=== PATIENT | female | born 1940 | race Caucasian/White ===

== ENCOUNTER 2017-05-01 09:01 | Inpatient (IN) | payer MEDICARE ==
[2017-05-01] VITALS (24 sets, daily range): BP systolic 99–145; BP diastolic 46–66
[~2017-05-01] VITALS: Ht 157.5 cm; Wt 79.8 kg
[~2017-05-01 09:01] MED LIST: ALBU90AE IH; ANAS1TAB7 PO; ATOR10TA69 PO; BIOT10004 PO; CALC625T77 PO; CARV3.12 PO; CHOL200013 PO; DOCU50CA13 PO; FLAX100030 PO; FLUO-125 PO; FOLI1TAB85 PO; FURO40TA5 PO; KRIL1CAP12 PO; LISI-617 PO; LORA10CA9 PO; METF500T6 PO; MONT10TA24 PO; TRIA1CAP6 PO; TURM500C4 PO; cinnamon PO
[2017-05-01 09:38] LABS: APPEARANCE,URINE Clear (CLEAR); BILIRUBIN,URINE Negative (NEGATIVE); COLOR,URINE Dark Yellow (YELLOW); GLUCOSE, URINE (UA) Negative (NEGATIVE); KETONES,URINE Negative (NEGATIVE); LEUKOCYTE ESTERASE ,URINE Small (NEGATIVE); NITRATE,URINE Negative (NEGATIVE); OCCULT BLOOD,URINE Negative (NEGATIVE); PROTEIN,URINE Negative (NEGATIVE)
[2017-05-01] MEDS ORDERED: ONDANSETRON HCL 4 MG/2 ML VIAL ONE ×2 (09:46→12:22)
[2017-05-01] MEDS ORDERED: SODIUM CHLORIDE 0.9% 1000ML 1,000 ML IV ONE (09:46)
[2017-05-01] MEDS ORDERED: ACETAMINOPHEN 325 MG TAB ONE (09:47)
[2017-05-01] MEDS ORDERED: MORPHINE SULFATE 2 MG/ML 1ML SYG ONE (09:47)
[2017-05-01 09:51] LABS: BACTERIA,URINE Rare /HPF (None Seen); MUCUS,URINE Rare LPF (None Seen); RBC,URINE 0-1 /HPF (0-1); SQUAMOUS EPITHELIAL CELL,UR Rare /LPF (0-2)
[2017-05-01 09:55] LABS: BASOPHILS % (AUTO) 0.2 % (0.0-5.0); EOSINOPHILS % (AUTO) 0.2 % (0.0-8.0); HEMATOCRIT 31.7 % (36-48); LYMPHOCYTES % (AUTO) 9.1 % (21.0-51.0); MEAN CORPUSCULAR HGB CONC 33.3 g/dL (32.0-36.0); MEAN CORPUSCULAR VOLUME 89.9 fL (79-99); MONOCYTES % (AUTO) 7.2 % (3.0-13.0); NEUTROPHILS % (AUTO) 83.3 % (40.0-77.0); PLATELET COUNT (AUTO) 257 K/uL (130-400); RED BLOOD CELL COUNT(AUTO) 3.53 MIL/uL (4.00-5.50); RED CELL DISTRIBUTION WIDTH 12.9 % (11.0-15.5); WHITE BLOOD COUNT (AUTO) 12.3 K/uL (4.8-10.8)
[2017-05-01 10:31] LABS: CREATININE 1.5 mg/dL (0.5-1.5)
[2017-05-01] MEDS ORDERED: ZOSYN 3.375GM+NS 50ML 50 ML IV ONE (10:33)
[2017-05-01 10:37] LABS: ALBUMIN 3.2 g/dL (3.5-5.0); BILIRUBIN,TOTAL 0.5 mg/dL (0.2-1.0); TOTAL PROTEIN, SERUM 6.7 g/dL (6.0-8.3)
[2017-05-01] MEDS: SODIUM CHLORIDE 0.9% 1000ML 1,000 ML IV SCH ×2 (11:02→20:58)
[2017-05-01] MEDS ORDERED: ONDANSETRON HCL 4 MG/2 ML VIAL IV PRN ×2 (11:15→19:41)
[2017-05-01] MEDS ORDERED: ACETAMINOPHEN 325 MG TAB PO PRN ×2 (11:15)
[2017-05-01] MEDS ORDERED: MORPHINE SULFATE 2 MG/ML 1ML SYG IV PRN (11:15)
[2017-05-01] MEDS ORDERED: ROCURONIUM BROMIDE 10MG/1ML 5ML VL ONE ×2 (12:22→12:25)
[2017-05-01] MEDS ORDERED: LIDOCAINE PF 2% 5ML ABBOJECT ONE (12:22)
[2017-05-01] MEDS ORDERED: LIDOCAINE HCL 4% LTA SOL 4 ML VIAL ONE (12:22)
[2017-05-01] MEDS ORDERED: LIDOCAINE HCL 2% JELLY 5 ML ONE (12:22)
[2017-05-01] MEDS ORDERED: LIDOCAINE HCL MPF 1% 5ML VIAL ONE (12:22)
[2017-05-01] MEDS ORDERED: MIDAZOLAM HCL 1 MG/ML 2ML VIAL ONE (12:23)
[2017-05-01] MEDS ORDERED: FENTANYL CITRATE PF 50 MCG/1 ML 2ML VIAL ONE ×3 (12:23→14:15)
[2017-05-01] MEDS: METRONIDAZOLE 500MG/100ML BAG 100 ML IV SCH ×2 (14:45→22:26)
[2017-05-01] MEDS: LEVOFLOXACIN 500 MG/D5W 100 ML 100 ML IV SCH (20:58)
[2017-05-01] MEDS: MORPHINE SULFATE 4 MG/1ML SYG IVP PRN (22:26)
[2017-05-01] MEDS: [UNRECOGNIZED DRUG - OTHER] IV SCH (23:44)
[2017-05-01] MEDS: ZOSYN 3.375 GM IV SCH (23:44)
[2017-05-02] MEDS: METRONIDAZOLE 500MG/100ML BAG 100 ML IV SCH ×3 (02:48→19:37)
[2017-05-02] MEDS: MORPHINE SULFATE 4 MG/1ML SYG IVP PRN ×4 (02:54→16:39)
[2017-05-02 04:05] VITALS: BP 136/69
[2017-05-02 05:26] LABS: HEMATOCRIT 30.4 % (36-48); MEAN CORPUSCULAR HEMOGLOBIN 31.2 pg (27.0-33.0); MEAN CORPUSCULAR HGB CONC 34.2 g/dL (32.0-36.0); MEAN CORPUSCULAR VOLUME 91.2 fL (79-99); PLATELET COUNT (AUTO) 225 K/uL (130-400); RED BLOOD CELL COUNT(AUTO) 3.33 MIL/uL (4.00-5.50); WHITE BLOOD COUNT (AUTO) 9.9 K/uL (4.8-10.8)
[2017-05-02] MEDS: [UNRECOGNIZED DRUG - OTHER] IV SCH ×3 (05:46→20:04)
[2017-05-02] MEDS: ZOSYN 3.375 GM IV SCH ×3 (05:46→20:04)
[2017-05-02 05:48] LABS: CREATININE 1.1 mg/dL (0.5-1.5); POTASSIUM 4.1 mmol/L (3.5-5.1)
[2017-05-02] MEDS: SODIUM CHLORIDE 0.9% 1000ML 1,000 ML IV SCH ×4 (06:43→22:31)
[2017-05-02 07:00] VITALS: BP 145/68
[2017-05-02] MEDS ORDERED: KETOROLAC TROMETHAMINE 15MG/ML IV PRN (08:45)
[2017-05-02] MEDS: PANTOPRAZOLE 40 MG/VIAL IVP SCH (10:33)
[2017-05-02 11:44] VITALS: BP 135/64
[2017-05-02 16:00] VITALS: BP 137/64
[2017-05-02 19:46] VITALS: BP 155/76
[2017-05-02] MEDS ORDERED: MORPHINE SULFATE 5 MG/ML VIAL ONE (20:01)
[2017-05-02 23:35] VITALS: BP 149/70
[2017-05-03] MEDS: ZOSYN 3.375 GM IV SCH ×3 (03:26→20:30)
[2017-05-03] MEDS: [UNRECOGNIZED DRUG - OTHER] IV SCH ×3 (03:26→20:30)
[2017-05-03] MEDS: METRONIDAZOLE 500MG/100ML BAG 100 ML IV SCH ×3 (03:26→19:15)
[2017-05-03 04:01] VITALS: BP 143/70
[2017-05-03 04:29] LABS: HEMATOCRIT 29.5 % (36-48); MEAN CORPUSCULAR HEMOGLOBIN 30.2 pg (27.0-33.0); MEAN CORPUSCULAR HGB CONC 33.3 g/dL (32.0-36.0); MEAN CORPUSCULAR VOLUME 90.6 fL (79-99); PLATELET COUNT (AUTO) 224 K/uL (130-400); RED BLOOD CELL COUNT(AUTO) 3.26 MIL/uL (4.00-5.50); RED CELL DISTRIBUTION WIDTH 12.9 % (11.0-15.5); WHITE BLOOD COUNT (AUTO) 7.8 K/uL (4.8-10.8)
[2017-05-03] MEDS: MORPHINE SULFATE 4 MG/1ML SYG IVP PRN ×2 (05:45→17:59)
[2017-05-03 07:00] VITALS: BP 143/75
[2017-05-03] MEDS: SODIUM CHLORIDE 0.9% 1000ML 1,000 ML IV SCH ×2 (07:26→23:31)
[2017-05-03] MEDS: LEVOFLOXACIN 500 MG/D5W 100 ML 100 ML IV SCH (09:00)
[2017-05-03] MEDS: PANTOPRAZOLE 40 MG/VIAL IVP SCH ×2 (09:00→13:28)
[2017-05-03 11:00] VITALS: BP 147/68
[2017-05-03] MEDS ORDERED: PHARMACY COMMUNICATION MISC SCH (13:00)
[2017-05-03] MEDS ORDERED: BENZOCAINE 20% 57 GM SPRAY TP SCH (13:45)
[2017-05-03 16:00] VITALS: BP 128/57
[2017-05-03] MEDS: GUAIFENESIN-DM 200/20 MG 10 ML PO PRN (18:06)
[2017-05-03 20:00] VITALS: BP 140/68
[2017-05-03] MEDS: ACETAMINOPHEN-CODEINE 300/30MG TAB PO PRN (20:31)
[2017-05-03] MEDS ORDERED: LEVOFLOXACIN 500 MG/D5W 100 ML 100 ML IV SCH (21:00)
[2017-05-03 23:54] VITALS: BP 138/59
[2017-05-04] MEDS: SODIUM CHLORIDE 0.9% 1000ML 1,000 ML IV SCH ×2 (01:37→14:15)
[2017-05-04] MEDS: ZOSYN 3.375 GM IV SCH ×3 (02:58→20:51)
[2017-05-04] MEDS: METRONIDAZOLE 500MG/100ML BAG 100 ML IV SCH (02:58)
[2017-05-04] MEDS: [UNRECOGNIZED DRUG - OTHER] IV SCH ×3 (02:58→20:51)
[2017-05-04 04:00] VITALS: BP 168/66
[2017-05-04 05:56] LABS: HEMATOCRIT 28.1 % (36-48); MEAN CORPUSCULAR HEMOGLOBIN 31.2 pg (27.0-33.0); MEAN CORPUSCULAR HGB CONC 34.3 g/dL (32.0-36.0); MEAN CORPUSCULAR VOLUME 90.9 fL (79-99); PLATELET COUNT (AUTO) 241 K/uL (130-400); RED BLOOD CELL COUNT(AUTO) 3.09 MIL/uL (4.00-5.50); RED CELL DISTRIBUTION WIDTH 12.8 % (11.0-15.5); WHITE BLOOD COUNT (AUTO) 5.4 K/uL (4.8-10.8)
[2017-05-04 06:05] LABS: CREATININE 0.9 mg/dL (0.5-1.5); POTASSIUM 3.8 mmol/L (3.5-5.1)
[2017-05-04 07:00] VITALS: BP 156/73
[2017-05-04 11:00] VITALS: BP 166/66
[2017-05-04] MEDS: ACETAMINOPHEN-CODEINE 300/30MG TAB PO PRN ×2 (14:44→20:52)
[2017-05-04] MEDS: GUAIFENESIN-DM 200/20 MG 10 ML PO PRN ×2 (14:44→20:56)
[2017-05-04 15:00] VITALS: BP 175/72
[2017-05-04] MEDS ORDERED: HYDRALAZINE HCL 20 MG/ML VIAL IV PRN (16:15)
[2017-05-04] MEDS ORDERED: HYDRALAZINE HCL 20 MG/ML VIAL ONE (16:20)
[2017-05-04] MEDS ORDERED: LISI-617 PO (16:44)
[2017-05-04 18:20] VITALS: BP 147/63
[2017-05-04] MEDS ORDERED: DOCUSATE SODIUM 100 MG CAP PO PRN (18:45)
[2017-05-04 19:54] VITALS: BP 154/61
[2017-05-04] MEDS: METFORMIN HCL 500 MG TABLET PO SCH (20:52)
[2017-05-04] MEDS: ATORVASTATIN CALCIUM 10 MG TABLET PO SCH (20:52)
[2017-05-04] MEDS: CARVEDILOL 3.125 MG TABLET PO SCH (20:52)
[2017-05-04] MEDS: LORATADINE 10 MG TABLET PO SCH (20:52)
[2017-05-04] MEDS: FLUOXETINE HCL 10 MG CAPSULE PO SCH (20:55)
[2017-05-04] MEDS: CALCIUM POLYCARBOPHIL 625 MG PO SCH (21:00)
[2017-05-04] MEDS: Anastrozole 1 MG PO SCH (21:00)
[2017-05-04] MEDS ORDERED: DOCUSATE SODIUM 50 MG PO SCH (21:00)
[2017-05-05] VITALS (7 sets, daily range): BP systolic 124–191; BP diastolic 55–84
[2017-05-05] MEDS: ZOSYN 3.375 GM IV SCH ×3 (04:08→20:12)
[2017-05-05] MEDS: [UNRECOGNIZED DRUG - OTHER] IV SCH ×3 (04:08→20:12)
[2017-05-05 05:47] LABS: HEMATOCRIT 28.3 % (36-48); MEAN CORPUSCULAR HEMOGLOBIN 30.1 pg (27.0-33.0); MEAN CORPUSCULAR HGB CONC 33.7 g/dL (32.0-36.0); MEAN CORPUSCULAR VOLUME 89.5 fL (79-99); PLATELET COUNT (AUTO) 252 K/uL (130-400); RED BLOOD CELL COUNT(AUTO) 3.16 MIL/uL (4.00-5.50); RED CELL DISTRIBUTION WIDTH 12.8 % (11.0-15.5); WHITE BLOOD COUNT (AUTO) 4.9 K/uL (4.8-10.8)
[2017-05-05 05:51] LABS: POTASSIUM 3.5 mmol/L (3.5-5.1)
[2017-05-05] MEDS: KRILL PO SCH (09:00)
[2017-05-05] MEDS: LIPIDS PO SCH (09:00)
[2017-05-05] MEDS: CALCIUM POLYCARBOPHIL 625 MG PO SCH ×2 (09:00→20:13)
[2017-05-05] MEDS: TURMERIC ROOT EXTRACT PO SCH (09:00)
[2017-05-05] MEDS: DHA PO SCH (09:00)
[2017-05-05] MEDS: TURMERIC PO SCH (09:00)
[2017-05-05] MEDS: Cholecalciferol (Vitamin D3) (Vitamin D3) 2,000 UNIT PO SCH (09:00)
[2017-05-05] MEDS: OMEGA PO SCH (09:00)
[2017-05-05] MEDS: FLAXSEED OIL 1000 MG PO SCH (09:00)
[2017-05-05] MEDS: EPA PO SCH (09:00)
[2017-05-05] MEDS ORDERED: LIDOCAINE HCL-MPF 1% 2ML VIAL IVP PRN (09:45)
[2017-05-05] MEDS ORDERED: POTASSIUM CHLORIDE 20MEQ/100ML 100 ML IV PRN (09:45)
[2017-05-05] MEDS ORDERED: POTASSIUM CHLORIDE 10% ELIXIR 20 MEQ/15 ML UDCUP PO PRN (09:45)
[2017-05-05] MEDS: METFORMIN HCL 500 MG TABLET PO SCH ×2 (09:49→20:13)
[2017-05-05] MEDS: PANTOPRAZOLE SODIUM 40 MG TABLET.DR PO SCH (09:49)
[2017-05-05] MEDS: LISINOPRIL 5 MG TABLET PO SCH (09:50)
[2017-05-05] MEDS: MONTELUKAST SODIUM 10 MG TAB PO SCH (09:50)
[2017-05-05] MEDS: FOLIC ACID/VITAMIN B COMP W-C 1 MG CAPSULE PO SCH (09:50)
[2017-05-05] MEDS: CARVEDILOL 3.125 MG TABLET PO SCH ×2 (09:50→20:12)
[2017-05-05] MEDS ORDERED: SIMETHICONE 80 MG TAB.CHEW PO PRN (10:15)
[2017-05-05] MEDS: POTASSIUM CHLORIDE 20 MEQ ERTAB PO PRN ×2 (12:28→16:27)
[2017-05-05] MEDS: FLUOXETINE HCL 10 MG CAPSULE PO SCH (20:12)
[2017-05-05] MEDS: LORATADINE 10 MG TABLET PO SCH (20:12)
[2017-05-05] MEDS: ATORVASTATIN CALCIUM 10 MG TABLET PO SCH (20:12)
[2017-05-05] MEDS: Anastrozole 1 MG PO SCH (20:13)
[2017-05-06 03:00] VITALS: BP 147/75
[2017-05-06] MEDS: ZOSYN 3.375 GM IV SCH ×2 (04:16→11:01)
[2017-05-06] MEDS: [UNRECOGNIZED DRUG - OTHER] IV SCH ×2 (04:16→11:01)
[2017-05-06 05:59] LABS: CREATININE 1.1 mg/dL (0.5-1.5); POTASSIUM 3.5 mmol/L (3.5-5.1)
[2017-05-06] MEDS: POTASSIUM CHLORIDE 20 MEQ ERTAB PO PRN ×2 (06:09→09:48)
[2017-05-06 08:02] VITALS: BP 148/77
[2017-05-06] MEDS: OMEGA PO SCH (09:00)
[2017-05-06] MEDS: TURMERIC ROOT EXTRACT PO SCH (09:00)
[2017-05-06] MEDS: TURMERIC PO SCH (09:00)
[2017-05-06] MEDS: Cholecalciferol (Vitamin D3) (Vitamin D3) 2,000 UNIT PO SCH (09:00)
[2017-05-06] MEDS: EPA PO SCH (09:00)
[2017-05-06] MEDS: KRILL PO SCH (09:00)
[2017-05-06] MEDS: FLAXSEED OIL 1000 MG PO SCH (09:00)
[2017-05-06] MEDS: DHA PO SCH (09:00)
[2017-05-06] MEDS: LIPIDS PO SCH (09:00)
[2017-05-06] MEDS: CALCIUM POLYCARBOPHIL 625 MG PO SCH (09:00)
[2017-05-06] MEDS: MONTELUKAST SODIUM 10 MG TAB PO SCH (09:47)
[2017-05-06] MEDS: FOLIC ACID/VITAMIN B COMP W-C 1 MG CAPSULE PO SCH (09:48)
[2017-05-06] MEDS: METFORMIN HCL 500 MG TABLET PO SCH (09:48)
[2017-05-06] MEDS: CARVEDILOL 3.125 MG TABLET PO SCH (09:48)
[2017-05-06] MEDS: PANTOPRAZOLE SODIUM 40 MG TABLET.DR PO SCH (09:48)
[2017-05-06] MEDS: LISINOPRIL 5 MG TABLET PO SCH (11:01)
[2017-05-06 11:56] VITALS: BP 140/60
[2017-05-06] MEDS ORDERED: TYL3 PO (12:03)
== END 2017-05-06 13:05 | disposition home or self-care (01) | DRG 331 ==
LOC: EDH 09:01 → EDHIP 11:02 → 2DH 15:17 → 4CH 05-03 16:15
PROVIDERS: ADMIT Family Medicine; ATTEND Family Medicine
PROC: 0DTA0ZZ Resection of Jejunum, Open Approach (ICD-10-PCS; principal; 2017-05-01 12:20)
DX: K63.1 Perforation of intestine (nontraumatic) (principal); E11.65 Type 2 diabetes mellitus with hyperglycemia; F32.9 Major depressive disorder, single episode, unspecified; I10 Essential (primary) hypertension; E78.5 Hyperlipidemia, unspecified; K66.0 Peritoneal adhesions (postprocedural) (postinfection); I89.0 Lymphedema, not elsewhere classified; K57.10 Diverticulosis of small intestine without perforation or abscess without bleeding; Z28.21 Immunization not carried out because of patient refusal; Z87.891 Personal history of nicotine dependence; Z98.49 Cataract extraction status, unspecified eye; Z88.6 Allergy status to analgesic agent; Z90.710 Acquired absence of both cervix and uterus; Z90.12 Acquired absence of left breast and nipple; Z85.3 Personal history of malignant neoplasm of breast
CPT/HCPCS: 36415; 74176; 80048; 80053; 81001; 82948; 83605; 84484; 85025; 85027; 87040; 88307; 93005; A4344; C9113; J0360; J1956; J2001; J2250; J2270; J2405; J2543; J3010; J3490; J7030

== ENCOUNTER 2017-05-12 11:02 | Inpatient (IN) | payer MEDICARE ==
[~2017-05-12] VITALS: Ht 157.5 cm; Wt 75.3 kg
[~2017-05-12 11:02] MED LIST changes: +TYL3 PO
[2017-05-12 11:39] LABS: BASOPHILS % (AUTO) 0.1 % (0.0-5.0); EOSINOPHILS % (AUTO) 0.6 % (0.0-8.0); LYMPHOCYTES % (AUTO) 6.1 % (21.0-51.0); MEAN CORPUSCULAR HEMOGLOBIN 30.3 pg (27.0-33.0); MEAN CORPUSCULAR HGB CONC 33.5 g/dL (32.0-36.0); MEAN CORPUSCULAR VOLUME 90.5 fL (79-99); MONOCYTES % (AUTO) 5.3 % (3.0-13.0); NEUTROPHILS % (AUTO) 87.9 % (40.0-77.0); PLATELET COUNT (AUTO) 373 K/uL (130-400); RED BLOOD CELL COUNT(AUTO) 3.42 MIL/uL (4.00-5.50); RED CELL DISTRIBUTION WIDTH 13.2 % (11.0-15.5); WHITE BLOOD COUNT (AUTO) 12.9 K/uL (4.8-10.8)
[2017-05-12] MEDS ORDERED: IOPAMIDOL-370 75 ML VIAL IV ONE (11:44)
[2017-05-12] MEDS ORDERED: DIATR MEGLU/DIATRIZOATE SODIUM 30 ML BOTTLE PO ONE (11:45)
[2017-05-12 11:49] LABS: CREATININE 1.3 mg/dL (0.5-1.5); POTASSIUM 3.9 mmol/L (3.5-5.1)
[2017-05-12 11:54] LABS: ALBUMIN 2.9 g/dL (3.5-5.0); BILIRUBIN,TOTAL 0.4 mg/dL (0.2-1.0); TOTAL PROTEIN, SERUM 7.1 g/dL (6.0-8.3)
[2017-05-12 12:01] LABS: APPEARANCE,URINE Clear (CLEAR); BILIRUBIN,URINE Negative (NEGATIVE); COLOR,URINE Yellow (YELLOW); GLUCOSE, URINE (UA) Negative (NEGATIVE); KETONES,URINE Negative (NEGATIVE); LEUKOCYTE ESTERASE ,URINE Small (NEGATIVE); NITRATE,URINE Negative (NEGATIVE); OCCULT BLOOD,URINE Negative (NEGATIVE); PROTEIN,URINE Negative (NEGATIVE); UROBILINOGEN,URINE 0.2 mg/dL (0.2-1.0)
[2017-05-12 12:28] LABS: BACTERIA,URINE Few /HPF (None Seen); RBC,URINE None Seen /HPF (0-1)
[2017-05-12] MEDS ORDERED: MEROPENEM 1 GM VIAL ONE (16:24)
[2017-05-12] MEDS ORDERED: MEROPENEM 1 GM VIAL IVP SCH (16:30)
[2017-05-12 22:49] VITALS: BP 148/56
[2017-05-13] MEDS ORDERED: SODIUM CHLORIDE 0.9% 1000ML 1,000 ML IV ONE (00:03)
[2017-05-13] MEDS ORDERED: HYDRALAZINE HCL 20 MG/ML VIAL IV PRN (02:15)
[2017-05-13] MEDS ORDERED: POTASSIUM CHLORIDE 20 MEQ ERTAB PO PRN (02:15)
[2017-05-13] MEDS ORDERED: GLUCAGON 1MG KIT 1 MG ML IM PRN (02:15)
[2017-05-13] MEDS ORDERED: POTASSIUM CHLORIDE 20MEQ/100ML 100 ML IV PRN (02:15)
[2017-05-13] MEDS ORDERED: DEXTROSE 50%-WATER 50 ML DISP.SYRIN IV PRN (02:15)
[2017-05-13] MEDS ORDERED: LIDOCAINE HCL-MPF 1% 2ML VIAL IVP PRN (02:15)
[2017-05-13] MEDS ORDERED: POTASSIUM CHLORIDE 10% ELIXIR 20 MEQ/15 ML UDCUP PO PRN (02:15)
[2017-05-13 03:00] VITALS: BP 139/62
[2017-05-13] MEDS ORDERED: ACETAMINOPHEN 325 MG TAB PO PRN (03:15)
[2017-05-13] MEDS ORDERED: ONDANSETRON HCL 4 MG/2 ML VIAL IVP PRN (03:15)
[2017-05-13] MEDS ORDERED: ACETAMINOPHEN 650 MG SUPPOSITORY RC PRN (03:15)
[2017-05-13] MEDS ORDERED: MORPHINE SULFATE 2 MG/ML 1ML SYG IVP PRN (03:15)
[2017-05-13] MEDS ORDERED: MORPHINE SULFATE 4 MG/1ML SYG IV PRN (03:15)
[2017-05-13] MEDS ORDERED: SODIUM CHLORIDE 0.9% 1000ML 1,000 ML IV SCH (03:15)
[2017-05-13 04:53] LABS: HEMATOCRIT 28.9 % (36-48); MEAN CORPUSCULAR HEMOGLOBIN 29.7 pg (27.0-33.0); MEAN CORPUSCULAR VOLUME 90.1 fL (79-99); PLATELET COUNT (AUTO) 348 K/uL (130-400); RED BLOOD CELL COUNT(AUTO) 3.21 MIL/uL (4.00-5.50); RED CELL DISTRIBUTION WIDTH 13.4 % (11.0-15.5)
[2017-05-13 04:56] LABS: INR 1.02 (0.85-1.15); PROTHROMBIN TIME 10.7 SEC (9.6-11.6)
[2017-05-13 05:01] LABS: CREATININE 1.1 mg/dL (0.5-1.5); POTASSIUM 3.5 mmol/L (3.5-5.1)
[2017-05-13] MEDS ORDERED: MEROPENEM 500MG+NS 50ML 50 ML IV SCH (06:00)
[2017-05-13] MEDS ORDERED: MEROPENEM 1GM IVPB PREMIXED 1 GM IVP SCH (06:00)
[2017-05-13] MEDS ORDERED: MEROPENEM 1 GM VIAL ONE (06:01)
[2017-05-13] MEDS ORDERED: WATER FOR INJECTION,STERILE 5 ML VIAL ONE (06:01)
[2017-05-13] MEDS: INSULIN HUMULIN R 100 UNIT/ML 3ML SQ SCH ×4 (06:10→20:33)
[2017-05-13 07:54] VITALS: BP 142/64
[2017-05-13 11:48] VITALS: BP 128/60
[2017-05-13] MEDS: MEROPENEM 500 MG VIAL IVP SCH ×2 (15:22→21:49)
[2017-05-13 16:11] VITALS: BP 130/60
[2017-05-13] MEDS: ALBUTEROL SULFATE 0.083% 2.5 MG/3 ML INH IH SCH (18:42)
[2017-05-13 19:00] VITALS: BP 120/55
[2017-05-13] MEDS: FLUOXETINE HCL 10 MG CAPSULE PO SCH (20:32)
[2017-05-13] MEDS: ATORVASTATIN CALCIUM 10 MG TABLET PO SCH (20:32)
[2017-05-13] MEDS: CARVEDILOL 3.125 MG TABLET PO SCH (20:33)
[2017-05-13 23:00] VITALS: BP 142/54
[2017-05-14] MEDS: ALBUTEROL SULFATE 0.083% 2.5 MG/3 ML INH IH SCH ×5 (01:22→23:48)
[2017-05-14 03:00] VITALS: BP 147/51
[2017-05-14 05:09] LABS: HEMATOCRIT 28.6 % (36-48); MEAN CORPUSCULAR HGB CONC 33.2 g/dL (32.0-36.0); MEAN CORPUSCULAR VOLUME 90.2 fL (79-99); PLATELET COUNT (AUTO) 344 K/uL (130-400); RED BLOOD CELL COUNT(AUTO) 3.17 MIL/uL (4.00-5.50); RED CELL DISTRIBUTION WIDTH 13.2 % (11.0-15.5); WHITE BLOOD COUNT (AUTO) 6.3 K/uL (4.8-10.8)
[2017-05-14] MEDS: MEROPENEM 500 MG VIAL IVP SCH ×3 (05:51→22:10)
[2017-05-14] MEDS: INSULIN HUMULIN R 100 UNIT/ML 3ML SQ SCH ×4 (06:02→21:00)
[2017-05-14 08:00] VITALS: BP 159/56
[2017-05-14] MEDS: MONTELUKAST SODIUM 10 MG TAB PO SCH (10:29)
[2017-05-14] MEDS: LISINOPRIL 5 MG TABLET PO SCH (10:29)
[2017-05-14] MEDS: CARVEDILOL 3.125 MG TABLET PO SCH ×2 (10:30→22:11)
[2017-05-14 11:55] VITALS: BP 126/61
[2017-05-14 15:55] VITALS: BP 111/53
[2017-05-14 20:13] VITALS: BP 145/70
[2017-05-14] MEDS: FLUOXETINE HCL 10 MG CAPSULE PO SCH (22:10)
[2017-05-14] MEDS: ATORVASTATIN CALCIUM 10 MG TABLET PO SCH (22:10)
[2017-05-15 00:28] VITALS: BP 119/57
[2017-05-15 03:44] VITALS: BP 114/57
[2017-05-15 05:23] LABS: HEMATOCRIT 28.7 % (36-48); MEAN CORPUSCULAR HEMOGLOBIN 30.3 pg (27.0-33.0); MEAN CORPUSCULAR HGB CONC 33.7 g/dL (32.0-36.0); MEAN CORPUSCULAR VOLUME 89.8 fL (79-99); NUCLEATED RED BLOOD CELLS 0.1 % (0.0-0.19); PLATELET COUNT (AUTO) 380 K/uL (130-400); RED CELL DISTRIBUTION WIDTH 13.1 % (11.0-15.5); WHITE BLOOD COUNT (AUTO) 5.8 K/uL (4.8-10.8)
[2017-05-15 05:27] LABS: POTASSIUM 3.8 mmol/L (3.5-5.1)
[2017-05-15] MEDS: INSULIN HUMULIN R 100 UNIT/ML 3ML SQ SCH (05:59)
[2017-05-15] MEDS: MEROPENEM 500 MG VIAL IVP SCH (06:08)
[2017-05-15] MEDS: ALBUTEROL SULFATE 0.083% 2.5 MG/3 ML INH IH SCH (06:12)
[2017-05-15 08:00] VITALS: BP 120/58
[2017-05-15] MEDS: CARVEDILOL 3.125 MG TABLET PO SCH (09:42)
[2017-05-15] MEDS: LISINOPRIL 5 MG TABLET PO SCH (09:43)
[2017-05-15] MEDS: MONTELUKAST SODIUM 10 MG TAB PO SCH (09:46)
[2017-05-15 11:00] VITALS: BP 140/61
== END 2017-05-15 13:17 | disposition home or self-care (01) | DRG 394 ==
LOC: EDH 11:02 → EDHIP 16:56 → 4BH 22:47
PROVIDERS: ADMIT Internal Medicine; ATTEND Internal Medicine
DX: K91.89 Other postprocedural complications and disorders of digestive system (principal); N39.0 Urinary tract infection, site not specified; E11.9 Type 2 diabetes mellitus without complications; E78.5 Hyperlipidemia, unspecified; I10 Essential (primary) hypertension; F32.9 Major depressive disorder, single episode, unspecified; Y83.2 Surgical operation with anastomosis, bypass or graft as the cause of abnormal reaction of the patient, or of later complication, without mention of misadventure at the time of the procedure; Z85.3 Personal history of malignant neoplasm of breast; Z87.891 Personal history of nicotine dependence; Z88.8 Allergy status to other drugs, medicaments and biological substances; Z90.12 Acquired absence of left breast and nipple; Y92.89 Other specified places as the place of occurrence of the external cause
CPT/HCPCS: 36415; 74177; 80048; 80053; 81001; 82948; 85025; 85027; 85610; 87040; 87804; 94640; 94664; A4218; J2185; J3480; J3490; J7030; Q9963; Q9967

== ENCOUNTER 2017-05-28 21:53 | Emergency (ER) | payer MEDICARE ==
[2017-05-28 22:55] LABS: BASOPHILS % (AUTO) 0.2 % (0.0-5.0); EOSINOPHILS % (AUTO) 2.8 % (0.0-8.0); HEMATOCRIT 30.7 % (36-48); LYMPHOCYTES % (AUTO) 15.5 % (21.0-51.0); MEAN CORPUSCULAR HEMOGLOBIN 31.6 pg (27.0-33.0); MEAN CORPUSCULAR HGB CONC 34.7 g/dL (32.0-36.0); MONOCYTES % (AUTO) 9.1 % (3.0-13.0); NEUTROPHILS % (AUTO) 72.4 % (40.0-77.0); PLATELET COUNT (AUTO) 244 K/uL (130-400); RED BLOOD CELL COUNT(AUTO) 3.38 MIL/uL (4.00-5.50); RED CELL DISTRIBUTION WIDTH 13.7 % (11.0-15.5); WHITE BLOOD COUNT (AUTO) 8.5 K/uL (4.8-10.8)
[2017-05-28 23:01] LABS: POTASSIUM 3.9 mmol/L (3.5-5.1)
[2017-05-28 23:06] LABS: ALBUMIN 3.2 g/dL (3.5-5.0); BILIRUBIN,TOTAL 0.2 mg/dL (0.2-1.0); TOTAL PROTEIN, SERUM 6.5 g/dL (6.0-8.3)
[2017-05-28] MEDS ORDERED: MORPHINE SULFATE 8 MG/ML VIAL ONE (23:14)
[2017-05-28] MEDS ORDERED: SODIUM CHLORIDE 0.9% 1000ML 1,000 ML IV ONE (23:14)
[2017-05-28] MEDS ORDERED: ONDANSETRON HCL 4 MG/2 ML VIAL ONE (23:14)
[2017-05-28] MEDS ORDERED: IOPAMIDOL-370 75 ML VIAL IV ONE (23:29)
[2017-05-29 00:39] LABS: APPEARANCE,URINE Clear (CLEAR); BILIRUBIN,URINE Negative (NEGATIVE); COLOR,URINE Yellow (YELLOW); GLUCOSE, URINE (UA) Negative (NEGATIVE); KETONES,URINE Negative (NEGATIVE); LEUKOCYTE ESTERASE ,URINE Moderate (NEGATIVE); NITRATE,URINE Negative (NEGATIVE); OCCULT BLOOD,URINE Negative (NEGATIVE); PROTEIN,URINE Negative (NEGATIVE); UROBILINOGEN,URINE 0.2 mg/dL (0.2-1.0)
[2017-05-29 01:07] LABS: BACTERIA,URINE Rare /HPF (None Seen); RBC,URINE 0-1 /HPF (0-1)
== END 2017-05-29 02:54 | disposition home or self-care (01) ==
LOC: EDH 21:53
DX: M79.3 Panniculitis, unspecified (principal); R10.84 Generalized abdominal pain; E11.9 Type 2 diabetes mellitus without complications; E78.5 Hyperlipidemia, unspecified; I10 Essential (primary) hypertension; Z88.6 Allergy status to analgesic agent; Z98.890 Other specified postprocedural states
CPT/HCPCS: 36415; 74177; 80053; 81001; 82550; 83690; 84484; 85025; 93005; 96361; 96374; 96375; 99285; J2270; J2405; J7030; Q9967

== ENCOUNTER → 2017-06-02 | Outpatient (CLI) | payer MEDICARE | END | disposition home or self-care (01) | LOC: LAB 13:12 | PROVIDERS: ATTEND Student in an Organized Health Care Education/Training Program | DX: R50.9 Fever, unspecified (principal) | CPT/HCPCS: 36415; 87040 ==